=== PATIENT | male | born 1975 | race African-American/Black ===

== ENCOUNTER 2022-07-11 16:33 | Emergency (ER) | payer OTHER ==
[2022-07-11 17:13] VITALS: BP 127/74; PULSE 77; RESP 20; TEMP 98; BMI 32.1
[2022-07-11] MEDS ORDERED: BACITRACIN 15 GM TUBE TOPICAL OINTMENT ONE (18:11)
== END 2022-07-11 18:44 | disposition home or self-care (01) ==
LOC: JERFT 16:33
DX: S61.412A Laceration without foreign body of left hand, initial encounter (principal); W26.8XXA Contact with other sharp object(s), not elsewhere classified, initial encounter; Z48.00 Encounter for change or removal of nonsurgical wound dressing
CPT/HCPCS: 99281-25

== ENCOUNTER 2025-05-26 11:42 | Inpatient (IN) | payer OTHER ==
[2025-05-26 11:52] VITALS: BMI 32.3
[2025-05-26] MEDS ORDERED: ACETAMINOPHEN INJECTION 100 ML ONE (12:35)
[2025-05-26] MEDS ORDERED: MORPHINE SULFATE 2 MG/ML SYRINGE ONE (12:35)
[2025-05-26] MEDS: ACETAMINOPHEN 1000 MG/100 ML BAG IVPB ONE (12:41)
[2025-05-26] MEDS: morphine CARPU-JECT 2 MG/1 ML DISP.SYRIN IVPUSH ONE (12:43)
[2025-05-26 13:03] LABS: ABSOLUTE IMMATURE GRANULOCYTES 0.01 x10^3/uL (0.0-0.031); BASOPHILS # 0.05 x10^3/uL (0.01-0.08); EOSINOPHIL % 1.9 % (0.8-7.0); EOSINOPHILS # 0.11 x10^3/uL (0.04-0.54); MCHC 32.8 g/dl (32.3-36.5); MEAN CELL VOLUME 85.8 fl (79.0-92.2); MEAN PLT VOLUME 10.4 fl (9.4-12.4); MONOCYTE # 0.41 x10^3/uL (0.30-0.82); MONOCYTE % 7.2 % (5.3-12.2); RDW 13.3 % (12.1-15.9)
[2025-05-26 13:20] LABS: CO2 30.0 mmol/L (21-32); GLUCOSE,RANDOM 94.0 mg/dL (74-106)
[2025-05-26 13:21] LABS: INR 1.1 (0.83-1.09); PROTHROMBIN TIME (PATIENT) 12.0 SEC (9.7-13.0)
[2025-05-26 13:23] LABS: CREATININE 0.9 mg/dL (0.55-1.3); SGOT/AST 27.0 U/L (15-37); SGPT/ALT 50.0 U/L (13-61)
[2025-05-26 13:24] LABS: ACTIVATED PTT 35.5 SECONDS (25.2-36.5); TOT PROT 7.5 g/dl (6.4-8.2)
[2025-05-26 13:25] LABS: ALK PHOS 83.0 U/L (45-117)
[2025-05-26 14:11] LABS: HCV DIAGNOSTIC IN-HOUSE W/RFLX NON-REACTIVE (NONREACTIVE)
[2025-05-26 14:12] LABS: HIV INTERPRETATION NEGATIVE (NEGATIVE)
[2025-05-26] MEDS ORDERED: morphine CARPU-JECT 2 MG/1 ML DISP.SYRIN IVPUSH PRN (17:16)
[2025-05-26] MEDS ORDERED: ACETAMINOPHEN 1000 MG/100 ML BAG IVPB PRN (17:16)
[2025-05-26] MEDS: LACTATED RINGERS SOLUTION 1,000 ML/1,000 ML INFUS.BAG IV SCH (18:55)
[2025-05-27 08:56] LABS: MCHC 32.8 g/dl (32.3-36.5); MEAN CELL VOLUME 87.8 fl (79.0-92.2); MEAN PLT VOLUME 10.4 fl (9.4-12.4); RDW 13.6 % (12.1-15.9)
[2025-05-27 09:00] LABS: INR 1.12 (0.83-1.09); PROTHROMBIN TIME (PATIENT) 12.3 SEC (9.7-13.0)
[2025-05-27 09:44] LABS: SGPT/ALT 43.0 U/L (13-61)
[2025-05-27 09:45] LABS: TOT PROT 6.7 g/dl (6.4-8.2)
[2025-05-27 09:46] LABS: ALK PHOS 69.0 U/L (45-117)
[2025-05-27 09:53] LABS: GLUCOSE,RANDOM 89.0 mg/dL (74-106)
[2025-05-27 09:55] LABS: SGOT/AST 21.0 U/L (15-37)
[2025-05-27 09:56] LABS: CREATININE 0.8 mg/dL (0.55-1.3)
[2025-05-27 09:57] LABS: CO2 30.0 mmol/L (21-32)
[2025-05-27 12:03] VITALS: BP 122/75; PULSE 63; RESP 17; TEMP 97.7
== END 2025-05-27 11:54 | disposition home or self-care (01) | DRG 254 ==
LOC: JER 11:42 → JERBED 15:11 → J8W 17:18
PROVIDERS: ATTEND Nurse Practitioner Acute Care
DX: K42.0 Umbilical hernia with obstruction, without gangrene (principal); E66.9 Obesity, unspecified; Z68.30 Body mass index [BMI] 30.0-30.9, adult
CPT/HCPCS: 36415; 74177-TC; 80053; 83605; 83735; 84100; 85025; 85027; 85610; 85730; 86803; 86850; 86900; 86901; 87389; 93005; 93010; 99285-25; Q9967

== ENCOUNTER 2025-05-31 21:24 | Day surgery (SDC) | payer OTHER ==
[2025-05-31] MEDS ORDERED: ACETAMINOPHEN INJECTION 100 ML ONE (22:20)
[2025-05-31] MEDS: ACETAMINOPHEN 1000 MG/100 ML BAG IVPB ONE (22:52)
[2025-05-31] MEDS: SODIUM CHLORIDE 500 ML IV STA (22:52)
[2025-05-31 23:00] LABS: ABSOLUTE IMMATURE GRANULOCYTES 0.02 x10^3/uL (0.0-0.031); BASOPHILS # 0.04 x10^3/uL (0.01-0.08); EOSINOPHIL % 2.6 % (0.8-7.0); EOSINOPHILS # 0.21 x10^3/uL (0.04-0.54); MCHC 32.7 g/dl (32.3-36.5); MEAN CELL VOLUME 86.6 fl (79.0-92.2); MEAN PLT VOLUME 10.1 fl (9.4-12.4); MONOCYTE # 0.69 x10^3/uL (0.30-0.82); MONOCYTE % 8.5 % (5.3-12.2); RDW 13.4 % (12.1-15.9)
[2025-05-31 23:13] LABS: INR 1.05 (0.83-1.09); PROTHROMBIN TIME (PATIENT) 11.5 SEC (9.7-13.0)
[2025-05-31 23:15] LABS: ACTIVATED PTT 35.4 SECONDS (25.2-36.5)
[2025-05-31 23:18] LABS: CO2 28.0 mmol/L (21-32); GLUCOSE,RANDOM 124.0 mg/dL (74-106)
[2025-05-31 23:21] LABS: CREATININE 0.9 mg/dL (0.55-1.3); SGOT/AST 28.0 U/L (15-37); SGPT/ALT 65.0 U/L (13-61)
[2025-05-31 23:23] LABS: TOT PROT 7.5 g/dl (6.4-8.2)
[2025-05-31 23:24] LABS: ALK PHOS 82.0 U/L (45-117)
[2025-06-01] MEDS ORDERED: ACETAMINOPHEN 1000 MG/100 ML BAG IVPB PRN (00:51)
[2025-06-01] MEDS ORDERED: morphine CARPU-JECT 2 MG/1 ML DISP.SYRIN IVPUSH PRN (01:44)
[2025-06-01] MEDS ORDERED: KETOROLAC TROMETHAMINE 15 MG/ML VIAL IVPUSH PRN (01:45)
[2025-06-01 03:23] VITALS: BMI 33.0
[2025-06-01] MEDS: AMPICILLIN NA/SULBACTAM NA 3 GM in SODIUM CHLORIDE 100 ML IVPB SCH (04:30)
[2025-06-01 09:00] LABS: ABSOLUTE IMMATURE GRANULOCYTES 0.02 x10^3/uL (0.0-0.031); BASOPHILS # 0.06 x10^3/uL (0.01-0.08); EOSINOPHIL % 2.6 % (0.8-7.0); EOSINOPHILS # 0.16 x10^3/uL (0.04-0.54); MCHC 33.3 g/dl (32.3-36.5); MEAN CELL VOLUME 86.2 fl (79.0-92.2); MEAN PLT VOLUME 10.3 fl (9.4-12.4); MONOCYTE # 0.51 x10^3/uL (0.30-0.82); MONOCYTE % 8.4 % (5.3-12.2); RDW 13.7 % (12.1-15.9)
[2025-06-01 09:50] LABS: CO2 27.0 mmol/L (21-32); GLUCOSE,RANDOM 91.0 mg/dL (74-106)
[2025-06-01] MEDS ORDERED: BUPIVACAINE HCL/PF 0.25% (2.5MG/ML) 10 ML VIAL ONE (09:51)
[2025-06-01 09:52] LABS: CREATININE 0.8 mg/dL (0.55-1.3); SGOT/AST 25.0 U/L (15-37); SGPT/ALT 59.0 U/L (13-61)
[2025-06-01 09:54] LABS: TOT PROT 6.9 g/dl (6.4-8.2)
[2025-06-01 09:55] LABS: ALK PHOS 69.0 U/L (45-117)
[2025-06-01] MEDS ORDERED: LIDOCAINE HCL/PF 2% SDV 5ML VIAL ONE (10:24)
[2025-06-01] MEDS ORDERED: PROPOFOL 20 ML ONE (10:24)
[2025-06-01] MEDS ORDERED: ROCURONIUM BROMIDE 50 MG/5 ML SYRINGE ONE ×2 (10:24→11:27)
[2025-06-01] MEDS ORDERED: MIDAZOLAM HCL 2 MG/2 ML SINGLE DOSE VIAL ONE (10:24)
[2025-06-01] MEDS: ceFAZolin 2 GRAM PREMIX BAG IVPB ONE ×2 (11:20)
[2025-06-01] MEDS: BUPIVACAINE HCL/PF 0.25% (2.5MG/ML) 10 ML VIAL IJ ONE ×2 (11:35)
[2025-06-01] MEDS ORDERED: SUGAMMADEX SODIUM 200 MG/2 ML VIAL ONE (13:12)
[2025-06-01] MEDS ORDERED: ONDANSETRON 4 MG/2 ML VIAL ONE (13:12)
[2025-06-01] MEDS ORDERED: ONDANSETRON 4 MG/2 ML VIAL IVPUSH PRN (14:17)
[2025-06-01] MEDS: LACTATED RINGERS SOLUTION 1,000 ML IV SCH (14:21)
[2025-06-01] MEDS: ACETAMINOPHEN 1000 MG/100 ML BAG IVPB SCH (18:55)
[2025-06-01 20:55] VITALS: RESP 18
[2025-06-01 22:58] VITALS: TEMP 97.7
[2025-06-02 06:41] VITALS: BP 131/87; PULSE 83
== END 2025-06-02 10:32 | disposition home or self-care (01) ==
LOC: JER 21:24 → UNDOADMIN 21:41 → JERBED 21:41 → J5S 06-01 02:47 → SUATTDRO 06-01 09:27 → JASUSAT 06-01 09:27 → J5S 06-01 09:36 → JASUSAT 06-02 10:32
PROC: 8E0W4CZ Robotic Assisted Procedure of Trunk Region, Percutaneous Endoscopic Approach (ICD-10-PCS; 2025-06-01)
PROC: 0WUF4JZ Supplement Abdominal Wall with Synthetic Substitute, Percutaneous Endoscopic Approach (ICD-10-PCS; principal; 2025-06-01 13:00)
DX: K43.9 Ventral hernia without obstruction or gangrene (principal)
CPT/HCPCS: 49593; S2900; 36415; 80053; 83605; 83735; 84100; 84484; 85025; 85610; 85730; 86850; 86900; 86901; 93005; 93010; 94760; 99285-25; C1781